=== PATIENT | male | born 1950 | race Caucasian/White ===

== ENCOUNTER 2022-12-21 09:27 | Day surgery (SDC) | payer MEDICARE ==
[2022-12-16 11:24] LABS: BASOPHILS # (AUTO) 0.06 K/uL (0.00-0.20); BASOPHILS % (AUTO) 0.6 % (0.0-5.0); HEMATOCRIT 44.6 % (42-54); IMMATURE GRANULOCYTE ABSOLUTE 0.05 K/uL (0-1); LYMPHOCYTES % (AUTO) 29.5 % (21.0-51.0); MEAN CORPUSCULAR HEMOGLOBIN 31.6 pg (27.0-33.0); MEAN CORPUSCULAR HGB CONC 32.7 g/dL (32.0-36.0); MEAN CORPUSCULAR VOLUME 96.5 fL (79-99); MONOCYTES # (AUTO) 0.9 K/uL (0.1-1.0); MONOCYTES % (AUTO) 8.7 % (3.0-13.0); NEUTROPHILS # (AUTO) 5.9 K/uL (1.8-7.7); NEUTROPHILS % (AUTO) 58.7 % (40.0-77.0); PLATELET COUNT (AUTO) 221 K/uL (130-400); RED BLOOD CELL COUNT(AUTO) 4.62 MIL/uL (4.50-6.20); RED CELL DISTRIBUTION WIDTH 12.6 % (11.0-15.5)
[2022-12-16 11:30] VITALS: BP 163/93; PULSE 88; RESP 18
[2022-12-16 11:39] LABS: INR < 0.93 (0.85-1.15); PROTHROMBIN TIME 10.1 SEC (9.6-11.6)
[2022-12-16 11:40] LABS: PARTIAL THROMBOPLASTIN TIME 28.1 SEC (26.3-35.5); POTASSIUM 4.6 mmol/L (3.5-5.1)
[2022-12-21] VITALS (17 sets, daily range): BP systolic 115–153; BP diastolic 68–90; PULSE 77–89; RESP 10–20
[~2022-12-21] VITALS: Ht 180.3 cm; Wt 147.9 kg
[2022-12-21] MEDS ORDERED: CEFAZOLIN SODIUM 2 GM VIAL ONE (10:05)
[2022-12-21] MEDS ORDERED: LACTATED RINGERS 1000ML 1,000 ML IV ONE (10:05)
[2022-12-21] MEDS ORDERED: BUPIVACAINE/PF 0.5% 30ML VIAL ONE (11:31)
[2022-12-21] MEDS ORDERED: KETAMINE 50MG/ML SYRINGE 50 MG/ML DISP.SYRIN ONE (12:35)
[2022-12-21] MEDS ORDERED: LIDOCAINE HCL 400MG/20ML VIAL ONE (12:35)
[2022-12-21] MEDS ORDERED: MIDAZOLAM HCL 1 MG/ML 5ML VIAL ONE (12:35)
[2022-12-21] MEDS ORDERED: PROPOFOL 10 MG/ML 20ML VIAL IV ONE (12:39)
[2022-12-21] MEDS ORDERED: BUPIVACAINE/EPI/PF 0.5% 30ML VIAL IJ ONE (12:51)
[2022-12-21] MEDS ORDERED: FENTANYL CITRATE PF 50 MCG/1 ML 5ML AMP IV ONE ×2 (12:53→13:19)
[2022-12-21] MEDS ORDERED: MEPERIDINE-PF 25 MG/ML SYG ONE (13:16)
[2022-12-21] MEDS ORDERED: KETOROLAC 30MG VIAL (30MG/ML) ONE (13:16)
[2022-12-21] MEDS ORDERED: GABA-529 PO (13:23)
[2022-12-21] MEDS ORDERED: DOCU-116 PO (13:23)
[2022-12-21] MEDS ORDERED: METH-662 PO (13:23)
[2022-12-21] MEDS ORDERED: ACET-2079 PO (14:37)
== END 2022-12-21 15:20 | disposition home or self-care (01) ==
LOC: DAH 09:27
PROVIDERS: ATTEND Surgery
DX: D17.1 Benign lipomatous neoplasm of skin and subcutaneous tissue of trunk (principal); I10 Essential (primary) hypertension; F32.A Depression, unspecified; E66.01 Morbid (severe) obesity due to excess calories; Z79.01 Long term (current) use of anticoagulants; Z79.899 Other long term (current) drug therapy
CPT/HCPCS: 80048; 85025; 85610; 85730; 36415; 21933; 88304; 93005; A6260; A4663; J7120; J3010 ×2; J3490 ×3; J2250; J2704; J1885; J0665; J2175; J0690; A4215; A4222; A4221; A4600